=== PATIENT | male | born 2000 ===

== ENCOUNTER 2023-02-10 14:15 | Emergency (ER) | payer MEDICAID ==
[~2023-02-10] VITALS: Ht 182.9 cm; Wt 77.0 kg
[2023-02-10 14:24] VITALS: BP 144/91
--- NOTE | 2023-02-10 14:54 | NUR ---
Pt in [facility] pt c/o suicidal thoughts, w/o a plan. Pt feels he would be better off . Pt thinks abouyt dying, but does not think he would commit suicide. Pt has depression, w/ angery outburts. Pt educated to POC. Pt is in agreement. Pending providers eval and treatment.
[2023-02-10] MEDS ORDERED: ESCI5TAB PO (15:42)
== END 2023-02-10 15:54 | disposition home or self-care (01) ==
LOC: ER 14:15
DX: F32.A Depression, unspecified (principal); F17.200 Nicotine dependence, unspecified, uncomplicated
CPT/HCPCS: 99283